=== PATIENT | female | born 1995 | race Two or more races ===

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

== ENCOUNTER 2019-05-20 19:25 | Emergency (ER) | payer OTHER ==
[~2019-05-20] VITALS: Ht 154.9 cm; Wt 65.8 kg
[~2019-05-20 19:25] MED LIST: AZITHROMYCIN250 MG ORAL; TAMIFLU75 MG ORAL
--- NOTE | 2019-05-20 19:30 | NUR ---
ED Nurse Note: Patient walked into ED c/o right third digit pain, states that she slammed her finger via a garage door, finger is bruised however no deformity noted. patient is alert and oriented x4. patient was placed in a chair. will continue to monitor
[2019-05-20 19:35] VITALS: BP 108/61
--- NOTE | 2019-05-20 20:33 | Emergency Room Report ---
History of Present Illness General Chief Complaint: Upper Extremity Injury Present Illness HPI 24-year-old female presents to the emergency department complaining of 4 out of 10 severity localized pain to the right middle finger x1 day. Patient reports status post trauma finger getting slammed/smashed in garage door prior to arrival. Patient reports pain with attempts to bend the distal aspect of her right middle finger. Patient is right-hand dominant. Patient reports small open wound to the finger pad of the affected extremity. Patient denies blood under the nail or discoloration of the nail. Denies numbness tingling or loss of sensation or gross motor movements of the affected extremity. Allergies: Coded Allergies: No Known Allergies (Unverified , 09/02/16) Patient History Past Medical History: see triage record Past Surgical History: none Pertinent Family History: none Last Menstrual Period: 12/2018 Now: No : 1 Para: 1 Reviewed Nursing Documentation: PMH: Agreed; PSxH: Agreed Review of Systems All Other Systems: negative except mentioned in HPI Physical Exam Vital Signs Date Time Temp Pulse Resp B/P (MAP) Pulse Ox O2 Delivery O2 Flow Rate FiO2 05/20/19 19:32 98.1 60 16 108/61 (77) 96 Room Air Sp02 EP Interpretation: reviewed, normal General Appearance: no apparent distress, alert, GCS 15, non-toxic Head: normocephalic, atraumatic Eyes: bilateral eye normal inspection, bilateral eye PERRL ENT: hearing grossly normal, normal voice Neck: full range of motion Respiratory: normal breath sounds, speaking full sentences Cardiovascular #1: regular rate, rhythm, normal capillary refill Cardiovascular #2: 2+ radial (R), 2+ radial (L) Musculoskeletal: back normal, gait/station normal, normal range of motion, tender - TTP RMF, swelling, erythema, no subungual hematoma, Nail is intact, normal cap refill. Neurologic: alert, oriented x3, responsive, motor strength/tone normal, sensory intact, speech normal, grossly normal Psychiatric: judgement/insight normal Skin: other - small superficial laceration less than 0.1cm in length to the finger pad of the RMF, no subungual hematoma. Nail is intact. Medical Decision Making PA Attestation Dr. Orozco is my supervising Physician whom patient management has been discussed with. Diagnostic Impression: Primary Impression: Finger contusion Qualified Codes: S60.031A - Contusion of right middle finger without damage to nail, initial encounter Additional Impression: Crush injury of hand Qualified Codes: S67.21XA - Crushing injury of right hand, initial encounter ER Course 24-year-old female presents to the emergency department complaining of 4 out of 10 severity localized pain to the right middle finger x1 day. Patient reports status post trauma finger getting slammed/smashed in garage door prior to arrival. Patient reports pain with attempts to bend the distal aspect of her right middle finger. Patient is right-hand dominant. Patient reports small open wound to the finger pad of the affected extremity. Patient denies blood under the nail or discoloration of the nail. Denies numbness tingling or loss of sensation or gross motor movements of the affected extremity. Ddx considered but are not limited to Fracture, dislocation, contusion, Sprain/ Strain/Spasm, nail bed injury, subungual hematoma, crush syndrome just to name a few. Vital signs: are WNL, pt. is afebrile H&PE are most consistent with musculoskeletal injury will perform imaging to r/ o fractures/dislocations. ORDERS: - X-ray Right hand 3 views - negative for fx, Dislocation, or significant soft tissue injury, per preliminary read in ED, and signed by ANNIKA Woodruff , my supervising physician has reviewed, and agrees with my interpretation. ED INTERVENTIONS: - Tylenol -- Finger Splint applied to the RMF by production technician. Pt. remains neurovascularly intact. DISCHARGE: At this time pt. is stable for d/c to home. Will provide printed patient care instructions, and any necessary prescriptions. Care plan and follow up instructions have been discussed with the patient prior to discharge. Other X-Ray Diagnostic Results Other X-Ray Diagnostic Results : X-Ray ordered: Right hand # of Views/Limited Vs Complete: 3 View Indication: Pain EP Interpretation: Yes ANNIKA Xray: Interpretation reviewed, by supervising MD, and agrees with findings. Interpretation: no dislocation, no soft tissue swelling, no fractures Impression: No acute disease Electronically Signed by: Cyndie Woodruff PA-C Last Vital Signs Date Time Temp Pulse Resp B/P (MAP) Pulse Ox O2 Delivery O2 Flow Rate FiO2 05/20/19 19:32 98.1 60 16 108/61 (77) 96 Room Air Status: improved Disposition: HOME, SELF-CARE Condition: Stable Scripts Acetaminophen* (TYLENOL EXTRA STRENGTH*) 500 Mg Tablet 500 MG ORAL Q6H, #30 TAB 0 Refills Prov: Cyndie Woodruff 05/20/19 Departure Forms: Return to Work Return to Work Date: May 22, 2019 Work Restrictions: No Heavy Lifting Other Restrictions: limited use of right hand. May return Sooner if Symptoms have resolved. Return to Full Activity: May 27, 2019 Patient Instructions: Crush Injury, Fingers or Toes, [id number] Additional Instructions: Take medications as directed. Follow up with a Primary Care Provider in 3-5 days, even if your symptoms have resolved. --Please review list of primary care clinics, if you do not already have a primary care provider Return sooner to ED if new symptoms occur, or current symptoms become worse. - Please note that this Emergency Department Report was dictated using [employer] technology software, occasionally this can lead to erroneous entry secondary to interpretation by the dictation equipment. Cyndie Woodruff May 20, 2019 20:33
[2019-05-20] MEDS ORDERED: TYLENOL EXTRA500 MG ORAL (20:34)
[2019-05-20 20:40] VITALS: BP 108/61
--- NOTE | 2019-05-20 20:40 | NUR ---
ER DISCHARGE NOTE: Patient is cleared to be discharged per ERMD, pt is aox4, on room air, with stable vital signs. pt was given dc and prescription instructions, pt was able to verbalize understanding, pt id band removed without complications. pt is able to ambulate with steady gait. pt took all belongings.
--- NOTE | 2019-05-21 12:37 | Diagnostic Imaging Report ---
Indication: Right hand pain Findings: 3 views of the right hand were obtained. Normal bony mineralization and alignment are demonstrated. No acute fractures, erosions, or periosteal reaction are seen. Soft tissues are unremarkable. Impression: No acute findings.
== END 2019-05-20 20:40 | disposition home or self-care (01) ==
LOC: EMR 20:28
DX: S60.031A Contusion of right middle finger without damage to nail, initial encounter (principal); S67.21XA Crushing injury of right hand, initial encounter; W23.0XXA Caught, crushed, jammed, or pinched between moving objects, initial encounter; Y92.008 Other place in unspecified non-institutional (private) residence as the place of occurrence of the external cause
CPT/HCPCS: 29130; 99283